=== PATIENT | male | born 1975 | race Two or more races ===

== ENCOUNTER 2017-02-10 20:01 | Emergency (ER) | payer MEDICAID ==
[~2017-02-10] VITALS: Ht 175.3 cm; Wt 96.2 kg
[2017-02-10] MEDS ORDERED: ALBUTEROL FS 2.5 MG/3 ML VIAL.NEB CONTNEB ONE (20:30)
[2017-02-10] MEDS ORDERED: IPRATROPIUM NEB FS 0.5 MG/2.5 ML AMPUL.NEB NEB ONE (20:30)
--- NOTE | 2017-02-10 20:33 | NUR ---
PT IS ON BREATHING TX.
[2017-02-10] MEDS ORDERED: IPRATROPIUM NEB FS 0.5 MG/2.5 ML AMPUL.NEB ONE (20:37)
[2017-02-10] MEDS ORDERED: ALBUTEROL FS 2.5 MG/3 ML VIAL.NEB ONE ×2 (20:37→21:30)
--- NOTE | 2017-02-10 21:24 | NUR ---
2ND BREATHING TREATMENT ORDERED.
[2017-02-10] MEDS ORDERED: predniSONE 20 MG TABLET ONE (21:27)
[2017-02-10] MEDS ORDERED: predniSONE 20 MG TABLET PO ONE (21:30)
[2017-02-10] MEDS ORDERED: ALBUTEROL FS 2.5 MG/0.5 ML VIAL.NEB NEB ONE (21:30)
--- NOTE | 2017-02-10 21:30 | NUR ---
PT IS ON A CONTINUOUS BREATHING TX.
--- NOTE | 2017-02-10 22:28 | NUR ---
BREATHING TX IS FINISHED. PT IS SATURATING AT 97% ON RA. PT STATED: "I FEEL LIKE I CAN RUN OUT OF HERE."
--- NOTE | 2017-02-10 22:36 | NUR ---
Patient discharged to home in stable condition. Written and verbal after care instructions given. Patient verbalizes understanding of instruction. Patient is ambulatory with steady gait, no further complaints.
[2017-02-10 22:37] VITALS: BP 128/87
== END 2017-02-10 22:38 | disposition home or self-care (01) ==
LOC: ER 20:02
DX: J45.901 Unspecified asthma with (acute) exacerbation (principal); Z88.1 Allergy status to other antibiotic agents
CPT/HCPCS: 71010; 94640 ×2; 94644; 99285; A4606; J7512; Z7610

== ENCOUNTER 2018-02-28 22:10 | Emergency (ER) | payer MEDICAID, OTHER ==
[~2018-02-28] VITALS: Ht 175.3 cm; Wt 97.5 kg
[2018-02-28 22:33] VITALS: BP 111/76
[2018-02-28] MEDS ORDERED: ALBUTEROL FS 2.5 MG/0.5 ML VIAL.NEB ONE (22:49)
[2018-02-28] MEDS ORDERED: ALBUTEROL FS 2.5 MG/0.5 ML VIAL.NEB NEB ONE (23:00)
== END 2018-02-28 23:54 | disposition home or self-care (01) ==
LOC: ER 22:12
DX: J45.909 Unspecified asthma, uncomplicated (principal); Z88.1 Allergy status to other antibiotic agents
CPT/HCPCS: 71045; 94640; 99283; A4606; Z7610